=== PATIENT | male | born 1950 | race Two or more races ===

== ENCOUNTER 2022-11-19 13:16 | Inpatient (IN) | payer OTHER ==
[~2022-11-19] VITALS: Ht 167.6 cm; Wt 49.9 kg
--- NOTE | 2022-11-19 13:51 | NUR ---
PACIENTE ALERTA Y ORIENTDAO X 3 REFIERE DOLOR ABDOMINAL Y DOLOR POR HERNIA INGUINAL.
--- NOTE | 2022-11-19 15:09 | NUR ---
ALIYAH WISEMAN ORIENTA A PTE SOBRE TRATAMIENTO E INSTRUCCIONES A SEGUIR, PTE REFIERE ENTENDER. LE COLECTA MUESTRAS, SE CANALIZA Y SE ADMINISTRA MEDICAMENTO MASOOD ORDEN MEDICA. PENDIENTE CT PO Y U/A
== END 2022-11-21 14:47 | disposition home or self-care (01) | DRG 351 ==
LOC: ER 13:16 → SURG 21:51
PROVIDERS: Surgery; ADMIT Specialist; ATTEND Specialist
PROC: BW21YZZ Computerized Tomography (CT Scan) of Abdomen and Pelvis using Other Contrast (ICD-10-PCS; 2022-11-19)
PROC: 0YU50JZ Supplement Right Inguinal Region with Synthetic Substitute, Open Approach (ICD-10-PCS; principal; 2022-11-20 00:15)
DX: K40.30 Unilateral inguinal hernia, with obstruction, without gangrene, not specified as recurrent (principal); K56.699 Other intestinal obstruction unspecified as to partial versus complete obstruction